=== PATIENT | female | born 2000 | race Caucasian/White ===

== ENCOUNTER 2020-02-23 07:50 | Emergency (ER) | payer BC ==
[~2020-02-23] VITALS: Ht 165.1 cm; Wt 70.5 kg
[2020-02-23 07:54] VITALS: TEMP 97.7
[2020-02-23 08:29] LABS: BASO % 0.5 % (0.0-2.0); EOS % 0.5 % (0-4.0); GRAN # 4.1 (1.4-6.5); GRAN % 67.6 % (42.2-75.2); HEMATOCRIT 41.2 % (37.0-47.0); HEMOGLOBIN 13.4 g/dl (12.5-16.0); LYMPH # 1.6 (1.2-3.4); LYMPH % 25.5 % (20.0-51.0); MEAN CELL VOLUME 85 fl (80.0-100.0); MEAN CORPUSCULAR HEMOGLOBIN 28 pg (27.0-31.0); MEAN CORPUSCULAR HGB CONC 33 g/dl (33.0-37.0); MEAN PLATELET VOLUME 10.1 fl (7.4-10.4); MONO # 0.3 (0.1-0.6); MONO % 5.6 % (1.7-9.3); PLATELET COUNT 285 K/mm3 (130-400); RED BLOOD COUNT 4.84 M/mm3 (4.10-5.30); REDCELL DISTRIBUTION WIDTH-CV 13.6 % (11.5-14.5)
[2020-02-23 08:49] LABS: ALANINE AMINOTRANSFERASE 12 U/L (4-34); ALBUMIN 4.2 gm/dL (3.5-5.0); ALKALINE PHOSPHATASE 58 U/L (50-136); ANION GAP 6 mmol/L (7-16); AST,SGOT 18 U/L (15-37); BILIRUBIN,TOTAL 0.3 mg/dL (0.0-1.0); BLOOD UREA NITROGEN 17 mg/dL (7-17); CALCIUM 9.5 mg/dL (8.4-10.2); CARBON DIOXIDE 27 mmol/L (22-30); CHLORIDE 105 mmol/L (98-107); CREATININE, serum 0.72 (0.52-1.25); GLUCOSE 115 mg/dL (74-106); SODIUM 138 mmol/L (137-145); TOTAL PROTEIN 7.3 gm/dL (6.4-8.2)
[2020-02-23 09:55] LABS: COLLECTION METHOD CLEAN CATCH
[2020-02-23 10:04] LABS: MUCOUS Present /lpf; PH 7 (5-8); SQUAMOUS EPITHELIAL 0-2 /hpf; URINE APPEARANCE Clear; URINE BACTERIA None Seen /hpf; URINE BILIRUBIN Negative (NEGATIVE); URINE BLOOD 2+ (NEGATIVE); URINE COLOR Yellow; URINE GLUCOSE Negative (NEGATIVE); URINE KETONE Negative (NEGATIVE); URINE LEUKOCYTE ESTERASE Negative (NEGATIVE); URINE NITRATE Negative (NEGATIVE); URINE PROTEIN(semi-quant) Negative (NEGATIVE); URINE UROBILINOGEN Negative (NEGATIVE)
[2020-02-23 10:20] VITALS: BP 103/63
[2020-02-23] MEDS ORDERED: ANTIVERT 25MG25 MG PO (10:34)
[2020-02-23 10:37] VITALS: PULSE 75
[2020-02-23 12:18] LABS: C-REACTIVE PROTEIN < 0.5 mg/dL (0.0-0.9)
== END 2020-02-23 10:37 | disposition home or self-care (01) ==
LOC: COL.ER 07:50
PROVIDERS: Physician Assistant
DX: R42 Dizziness and giddiness (principal); Z32.02 Encounter for pregnancy test, result negative; Z88.0 Allergy status to penicillin; Z88.1 Allergy status to other antibiotic agents; Z88.2 Allergy status to sulfonamides
CPT/HCPCS: J2060; J2405; J7030

== ENCOUNTER 2020-02-27 10:52 | Emergency (ER) | payer BC ==
[~2020-02-27] VITALS: Ht 165.1 cm; Wt 70.5 kg
[~2020-02-27 10:52] MED LIST: ANTIVERT 25MG25 MG PO
[2020-02-27 11:47] LABS: COLLECTION METHOD CLEAN CATCH
[2020-02-27 11:59] LABS: BASO % 0.4 % (0.0-2.0); EOS % 0.4 % (0-4.0); GRAN % 68.4 % (42.2-75.2); HEMATOCRIT 44.1 % (37.0-47.0); HEMOGLOBIN 14.4 g/dl (12.5-16.0); LYMPH # 1.8 (1.2-3.4); LYMPH % 24.4 % (20.0-51.0); MEAN CELL VOLUME 87 fl (80.0-100.0); MEAN CORPUSCULAR HEMOGLOBIN 28 pg (27.0-31.0); MEAN CORPUSCULAR HGB CONC 33 g/dl (33.0-37.0); MEAN PLATELET VOLUME 10.4 fl (7.4-10.4); MONO # 0.4 (0.1-0.6); MONO % 5.9 % (1.7-9.3); PLATELET COUNT 311 K/mm3 (130-400); RED BLOOD COUNT 5.09 M/mm3 (4.10-5.30); REDCELL DISTRIBUTION WIDTH-CV 13.5 % (11.5-14.5)
[2020-02-27 12:04] LABS: MUCOUS Present /lpf; PH 7 (5-8); SQUAMOUS EPITHELIAL 0-2 /hpf; URINE APPEARANCE Clear; URINE BILIRUBIN Negative (NEGATIVE); URINE BLOOD 1+ (NEGATIVE); URINE COLOR Yellow; URINE GLUCOSE Negative (NEGATIVE); URINE KETONE Negative (NEGATIVE); URINE LEUKOCYTE ESTERASE Negative (NEGATIVE); URINE NITRATE Negative (NEGATIVE); URINE PROTEIN(semi-quant) Negative (NEGATIVE); URINE UROBILINOGEN Negative (NEGATIVE)
[2020-02-27 12:11] LABS: ALBUMIN 4.7 gm/dL (3.5-5.0); BILIRUBIN,TOTAL 0.5 mg/dL (0.0-1.0); CALCIUM 9.9 mg/dL (8.4-10.2); CREATININE, serum 0.73 (0.52-1.25); POTASSIUM 4.2 mmol/L (3.4-5.0)
[2020-02-27 12:31] LABS: URINE BACTERIA Rare /hpf
[2020-02-27 13:15] VITALS: BP 110/68; PULSE 76; TEMP 97.8
== END 2020-02-27 13:16 | disposition home or self-care (01) ==
LOC: COL.ER 10:52
PROVIDERS: Nurse Practitioner Primary Care
DX: R42 Dizziness and giddiness (principal); Z88.2 Allergy status to sulfonamides; Z88.0 Allergy status to penicillin; Z88.1 Allergy status to other antibiotic agents
CPT/HCPCS: J2550; J7030

== ENCOUNTER → 2021-02-15 | Outpatient (CLI) | payer BC | LOC: COL.RAD 12:30 | DX: N83.01 Follicular cyst of right ovary (principal); N83.02 Follicular cyst of left ovary; Z97.5 Presence of (intrauterine) contraceptive device ==